=== PATIENT | male | born 1955 | race Hispanic/Latino ===

== ENCOUNTER 2017-09-15 13:55 | Inpatient (IN) | payer BC ==
[~2017-09-15] VITALS: Ht 165.1 cm; Wt 65.5 kg
[2017-09-15 15:19] LABS: BASOPHILS # (AUTO) 0.1 (0.0-0.1); BASOPHILS % 0.3 % (0.0-1.0); HEMATOCRIT 39.1 % (38.2-49.6); HEMOGLOBIN 13.7 g/dL (14.0-18.0); LYMPHOCYTES # (AUTO) 1.2 (1.0-3.2); LYMPHOCYTES % 6.9 % (18.0-39.1); MEAN CORPUSCULAR HEMOGLOBIN 30.2 pg (28-32); MEAN CORPUSCULAR VOLUME 86.3 fL (81-99); MONOCYTES # (AUTO) 1.1 (0.2-0.8); MONOCYTES % 6.2 % (4.4-11.3); NEUTROPHILS # (AUTO) 14.5 (2.1-6.9); NEUTROPHILS % 84.9 % (38.7-80.0); PLATELET COUNT 333 x10e3/uL (140-360); RED BLOOD COUNT 4.53 x10e6/uL (4.3-5.7); RED CELL DISTRIBUTION WIDTH 12.6 % (11.7-14.4)
[2017-09-15 15:27] LABS: BILIRUBIN,URINE NEGATIVE (NEGATIVE); CLARITY,URINE CLOUDY (CLEAR); COLOR,URINE YELLOW (YELLOW); KETONES,URINE NEGATIVE (NEGATIVE); LEUKOCYTE ESTERASE ,URINE 2+ (NEGATIVE); NITRITE,URINE NEGATIVE (NEGATIVE); PROTEIN,URINE DIPSTICK 2+ (NEGATIVE); URINE UROBILINOGEN 0.2 mg/dL (0.2 - 1)
[2017-09-15 15:39] LABS: ALBUMIN 2.6 g/dL (3.5-5.0); ALBUMIN/GLOBULIN RATIO 0.6 (0.8-2.0); ANION GAP 16.3 mmol/L (8-16); CALCIUM 9.3 mg/dL (8.4-10.2); CREATININE, SERUM 1.54 mg/dL (0.72-1.25); POTASSIUM 4.3 mmol/L (3.5-5.1)
[2017-09-15 15:41] LABS: BACTERIA,URINE MODERATE /HPF; EPITHELIAL CELLS,URINE RARE /LPF; WBC,URINE (MAN) >50 /HPF (0-5)
[2017-09-15] MEDS ORDERED: CEFTRIAXONE SOD 1 GM VIAL IV STA (16:41)
[2017-09-15] MEDS ORDERED: SODIUM CHLORIDE 0.9% 1000ML 1,000 ML IV SCH (16:45)
--- NOTE | 2017-09-15 16:52 | Diagnostic Imaging Report ---
PROCEDURE: CT ABDOMEN AND PELVIS WITHOUT CONTRAST COMPARISON:[facility], , US TESTICULAR DOPPLER LTD, 09/15/2017, 15:42. INDICATIONS:RIGHT KIDNEY STONE TECHNIQUE: Axial CT images through the abdomen and pelvis were obtained from the lung bases through the pubic symphysis. Coronal and sagittal reformations were created. DLP: 611.85 mGy-cm FINDINGS: Right kidney: No calculus. Low attenuating lesion in the posterior interpolar cortex measures 8 mm and is suggestive of a cyst. Mild perinephric inflammation. No hydronephrosis. Left kidney: No evidence of calculus. Mild perinephric inflammation. No mass or hydronephrosis. Bladder/ureters: Mild inflammation surrounding the proximal and mid left ureter. No evidence of calculus. Right ureter is normal in diameter without calculus or periureteric inflammation. Circumferential mural thickening of the bladder without intraluminal calculus or air. Lung bases: Diffusely hyperinflated with multiple air cysts measuring up to 2.6 cm in the right lower lobe. Visualized portion of the mediastinum is normal. Liver: Normal attenuation. No mass Spleen: Normal size. No mass. Biliary: Present and normal in appearance. No biliary ductal dilatation. Pancreas: Normal. Adrenal Glands: No mass. Vasculature: Aorta is normal in diameter with scattered calcifications. GI: The stomach is normal. Small bowel is normal in diameter with normal wall thickness. Small diverticulum in the second/third portion of the duodenum. Several scattered diverticula in the large bowel. There is increased attenuation of the contents of the large bowel which may be secondary to medication. The appendix is not visualized and may be absent or collapsed. Peritoneum/Retroperitoneum: No free fluid or fluid collection. Reproductive organs: Prostate gland is mildly enlarged. Seminal vesicles are normal. MSK: Mild degenerative changes of the spine without compression deformity. Trace degenerative changes of the hips. No destructive lesions. CONCLUSION: 1. No evidence of renal calculus or obstructive uropathy. Left periureteric inflammation may be secondary to urinary tract infection. Please correlate with urinalysis and urine culture. 2. Mild prostate hypertrophy and bladder wall thickening suggestive of bowel obstruction. 3. Diverticulosis coli. No bowel obstruction or inflammation. Dictated by: Sheryl Kwan M.D. on 09/15/2017 at 16:56 Electronically approved by: Sheryl Kwan M.D. on 09/15/2017 at 16:56
[2017-09-15] MEDS ORDERED: ACETAMINOPHEN 325 MG TAB PO STA (17:00)
[2017-09-15] MEDS ORDERED: INSULIN REGULAR, HUMAN 100 UNIT/1 ML 3ML VIAL SQ STA (17:04)
--- NOTE | 2017-09-15 17:05 | Diagnostic Imaging Report ---
PROCEDURE:TESTICULAR DOPPLER ULTRASOUND COMPARISON:[facility], US, US TESTICULAR, 09/15/2017, 15:42. INDICATIONS:Right testicular swelling, pain TECHNIQUE: Lao-scale and color Doppler images of the testicles and scrotal contents were obtained. Duplex imaging with spectral waveform analysis was performed of the testicular arteries and veins. FINDINGS: RIGHT SCROTUM: Testicle: 2.9 x 2.3 x 3.4 cm. No mass. Epididymal head: 8 x 7 x 17 mm. It contains a cyst measuring 5 x 8 x 8 mm. Appendix epididymis measures 2 x 3 x 4 mm. Hydrocele: None Varicocele: None LEFT SCROTUM: Testicle: 1.8 x 2.9 x 3.7 cm. No mass. Epididymal head: 5 x 5 x 9 mm. It contains a cyst measuring 5 x 4 x 6 mm. Hydrocele: Small Varicocele: None There is normal blood flow to the testes on color and spectral Doppler interrogation. Hernia: None. CONCLUSION: 1. Normal testes. 2. Bilateral epididymal head cysts. 3. Small left hydrocele. Dictated by: Sheryl Kwan M.D. on 09/15/2017 at 17:09 Electronically approved by: Sheryl Kwan M.D. on 09/15/2017 at 17:09
--- NOTE | 2017-09-15 17:06 | Diagnostic Imaging Report ---
PROCEDURE:US TESTICULAR COMPARISON:None. INDICATIONS:rt test swelling/ pain FINDINGS:Please refer to [id number] for report. CONCLUSION:As above. Dictated by: Sheryl Kwan M.D. on 09/15/2017 at 17:10 Electronically approved by: Sheryl Kwan M.D. on 09/15/2017 at 17:10
[2017-09-15] MEDS ORDERED: LEVOFLOXACIN 750MG/D5W 150ML 150 ML IV SCH ×2 (17:15→17:30)
[2017-09-15] MEDS ORDERED: MORPHINE SULFATE 2 MG/ML SYR IV PRN (17:15)
[2017-09-15] MEDS ORDERED: ONDANSETRON HCL INJ 2 MG/ML VIAL IV PRN (17:15)
[2017-09-15] MEDS ORDERED: DEXTROSE 50% SYRINGE 50 ML IV PRN (17:30)
[2017-09-15] MEDS: SODIUM CHLORIDE 0.9% 1000ML 1,000 ML IV SCH (18:55)
[2017-09-15] MEDS: CEFTRIAXONE SOD 1 GM VIAL IV SCH (19:06)
[2017-09-15 20:10] VITALS: BP 114/65
[2017-09-15] MEDS: INSULIN REGULAR, HUMAN 100 UNIT/1 ML 3ML VIAL SQ SCH (21:00)
[2017-09-15 21:08] VITALS: BP 114/65
[2017-09-16] VITALS (7 sets, daily range): BP systolic 107–117; BP diastolic 56–70
[2017-09-16] MEDS: ACETAMINOPHEN 325 MG TAB PO PRN (04:03)
[2017-09-16] MEDS: SODIUM CHLORIDE 0.9% 1000ML 1,000 ML IV SCH ×2 (04:03→09:19)
[2017-09-16] MEDS: CEFTRIAXONE SOD 1 GM VIAL IV SCH (05:40)
[2017-09-16 05:50] LABS: BASOPHILS # (AUTO) 0.1 (0.0-0.1); BASOPHILS % 0.3 % (0.0-1.0); EOSINOPHILS % 0.1 % (0.0-6.0); HEMATOCRIT 35.3 % (38.2-49.6); HEMOGLOBIN 12.3 g/dL (14.0-18.0); LYMPHOCYTES # (AUTO) 1.6 (1.0-3.2); LYMPHOCYTES % 9.7 % (18.0-39.1); MEAN CORPUSCULAR HEMOGLOBIN 30.1 pg (28-32); MEAN CORPUSCULAR HGB CONC 34.8 g/dL (31-35); MEAN CORPUSCULAR VOLUME 86.3 fL (81-99); MONOCYTES # (AUTO) 1.7 (0.2-0.8); MONOCYTES % 10.3 % (4.4-11.3); NEUTROPHILS # (AUTO) 12.5 (2.1-6.9); NEUTROPHILS % 77.7 % (38.7-80.0); PLATELET COUNT 261 x10e3/uL (140-360); RED BLOOD COUNT 4.09 x10e6/uL (4.3-5.7); RED CELL DISTRIBUTION WIDTH 12.8 % (11.7-14.4)
[2017-09-16 06:07] LABS: ALBUMIN 2.3 g/dL (3.5-5.0); ALBUMIN/GLOBULIN RATIO 0.6 (0.8-2.0); ANION GAP 14.1 mmol/L (8-16); CALCIUM 8.9 mg/dL (8.4-10.2); CREATININE, SERUM 1.29 mg/dL (0.72-1.25); POTASSIUM 4.1 mmol/L (3.5-5.1)
[2017-09-16 07:12] LABS: LYMPHOCYTES % (MANUAL) 7 % (19-48); MONOCYTES % (MANUAL) 9 % (3.4-9.0); NEUTROPHILS % (MANUAL) 81 % (40-74); PLATELET ESTIMATE ADEQUATE; PLATELET MORPHOLOGY COMMENT FEW LARGE; RBC MORPHOLOGY COMMENT NORMAL
[2017-09-16] MEDS: INSULIN REGULAR, HUMAN 100 UNIT/1 ML 3ML VIAL SQ SCH ×4 (09:30→20:35)
[2017-09-16] MEDS ORDERED: OXAPROZIN600 MG PO (09:53)
[2017-09-16] MEDS ORDERED: BACLOFEN10 MG PO (09:53)
[2017-09-16] MEDS ORDERED: GLIPIZIDE ER5 MG PO (09:53)
[2017-09-16] MEDS ORDERED: AMLODIPINE-BEN1 EAC2 PO (09:53)
[2017-09-16] MEDS ORDERED: CEFDINIR125 MG/5 M PO (09:53)
[2017-09-16] MEDS ORDERED: METFORMIN HCL500 M2 PO (09:53)
[2017-09-16] MEDS: LACTOBACILLUS ACIDOPHILUS CAPSULE PO SCH (16:28)
[2017-09-16] MEDS: ENOXAPARIN SOD INJ 40 MG/0.4 ML SYR SC SCH (16:28)
[2017-09-16] MEDS ORDERED: VANCOMYCIN 1GM/NS 250 ML 250 ML IV ONE (16:30)
[2017-09-16] MEDS: LEVOFLOXACIN 500 MG TAB PO SCH (21:00)
[2017-09-16] MEDS: METFORMIN HCL 500 MG TAB CR PO SCH (21:00)
[2017-09-17] MEDS: SODIUM CHLORIDE 0.9% 1000ML 1,000 ML IV SCH ×2 (00:43→10:44)
[2017-09-17 00:51] VITALS: BP 110/60
[2017-09-17] MEDS: ACETAMINOPHEN 325 MG TAB PO PRN ×2 (01:37→21:13)
[2017-09-17 05:21] VITALS: BP 110/58
[2017-09-17 06:12] LABS: BASOPHILS # (AUTO) 0.1 (0.0-0.1); BASOPHILS % 0.5 % (0.0-1.0); EOSINOPHILS % 0.3 % (0.0-6.0); HEMATOCRIT 36.1 % (38.2-49.6); HEMOGLOBIN 12.1 g/dL (14.0-18.0); LYMPHOCYTES # (AUTO) 2.3 (1.0-3.2); LYMPHOCYTES % 18.6 % (18.0-39.1); MEAN CORPUSCULAR HEMOGLOBIN 29.7 pg (28-32); MEAN CORPUSCULAR HGB CONC 33.5 g/dL (31-35); MEAN CORPUSCULAR VOLUME 88.7 fL (81-99); MONOCYTES # (AUTO) 1.2 (0.2-0.8); MONOCYTES % 10.1 % (4.4-11.3); NEUTROPHILS # (AUTO) 8.5 (2.1-6.9); NEUTROPHILS % 68.6 % (38.7-80.0); PLATELET COUNT 286 x10e3/uL (140-360); RED BLOOD COUNT 4.07 x10e6/uL (4.3-5.7)
[2017-09-17 06:34] LABS: ANION GAP 14.2 mmol/L (8-16); BLOOD UREA NITROGEN 16 mg/dL (7-26); BUN/CREATININE RATIO 15 (6-25); CALCIUM 8.8 mg/dL (8.4-10.2); CARBON DIOXIDE 25 mmol/L (22-29); CHLORIDE 105 mmol/L (98-107); EST GLOMERULAR FILTRATION RATE > 60 ML/MIN (60-); GLUCOSE 100 mg/dL (74-118); POTASSIUM 4.2 mmol/L (3.5-5.1); SODIUM 140 mmol/L (136-145)
[2017-09-17] MEDS: INSULIN REGULAR, HUMAN 100 UNIT/1 ML 3ML VIAL SQ SCH ×4 (07:30→21:00)
[2017-09-17 07:43] LABS: LYMPHOCYTES % (MANUAL) 8 % (19-48); MONOCYTES % (MANUAL) 5 % (3.4-9.0); MYELOCYTES % (MANUAL) 1 % (0-0); NEUTROPHILS % (MANUAL) 78 % (40-74); RBC MORPHOLOGY COMMENT NORMAL
[2017-09-17 07:44] LABS: PLATELET ESTIMATE ADEQUATE; PLATELET MORPHOLOGY COMMENT NORMAL
[2017-09-17 07:57] VITALS: BP 116/56
[2017-09-17] MEDS ORDERED: CEFTRIAXONE SOD 1 GM VIAL IV SCH (09:00)
[2017-09-17] MEDS: LACTOBACILLUS ACIDOPHILUS CAPSULE PO SCH ×2 (09:16→17:00)
[2017-09-17 12:49] VITALS: BP 136/66
[2017-09-17 16:39] VITALS: BP 134/53
[2017-09-17] MEDS: ENOXAPARIN SOD INJ 40 MG/0.4 ML SYR SC SCH (17:00)
--- NOTE | 2017-09-17 19:38 | Consultation ---
DATE OF CONSULTATION: September 17, 2017 REASON FOR CONSULTATION: Urinary tract infection, prostatitis, acute, pyelonephritis, and right testicular pain. HISTORY: A 62-year-old male admitted to the hospital with pyelonephritis, urinary tract infection, prostatitis. The patient has had for the last 2-1/2 to 3 months some difficulty urinating. The difficulty has been with frequency and urgency intermittently. He also has had hematospermia on 3 occasions, and has had some passage of small little clots intermittently over the last 2 months. The patient got admitted to the hospital with exacerbation of his symptoms. Urine culture reveals E. coli sensitive to antibiotics of Cipro, Levaquin. The patient is afebrile today. PHYSICAL EXAMINATION : Bilateral descended testicles. Penis is normal. Prostate exam is not done since the patient probably has prostatitis. I do not want to cause a prostatic thrill. IMPRESSION 1. Prostatitis, acute. 2. Pyelonephritis. 3. Urinary tract infection. RECOMMENDATIONS: The patient had a CT scan that shows no tumors or stones. The bladder wall is thickened, but this could be secondary to the UTI he has. I have requested the patient to come see me in the office within a month for urological evaluation with a flow test. Will recheck the urine. If there is any blood, the patient will need to have a cystoscopy. The patient may go home. I will write Cipro for the next 2 weeks. Job#: [id number] GERMAINE
[2017-09-17 20:00] VITALS: BP 118/53
[2017-09-17] MEDS: METFORMIN HCL 500 MG TAB CR PO SCH (21:12)
[2017-09-17] MEDS: LEVOFLOXACIN 500 MG TAB PO SCH (21:12)
[2017-09-18] VITALS: BP 118/53
[2017-09-18] MEDS: INSULIN REGULAR, HUMAN 100 UNIT/1 ML 3ML VIAL SQ SCH (07:30)
[2017-09-18 08:00] VITALS: BP 129/72
[2017-09-18] MEDS: LACTOBACILLUS ACIDOPHILUS CAPSULE PO SCH (08:33)
--- NOTE | 2017-09-18 12:30 | Discharge Summary ---
PRIMARY CARE DOCTOR: Dr. Juanpablo Greenwood. FINAL DIAGNOSIS: Sepsis present on admission due to acute prostatitis and Escherichia coli urinary tract infection. SECONDARY DIAGNOSIS 1. Acute kidney injury, resolving. 2. Hyponatremia, resolving. 3. Diabetes, stable. CONSULTANTS: Dr. Jaime Adames, urology. PROCEDURES/STUDIES PERFORMED 1. Testicular ultrasound. 2. Computed tomography of abdomen and pelvis. HISTORY: Per H\T\P. HOSPITAL COURSE: Patient responded well to IV antibiotics based on his culture results. The patient will be going home on Cipro for 2 more weeks. Given his right testicular pain, patient was evaluated by Dr. Jaime Adames. Patient will follow up with him in 1 month. Patient does have asymptomatic bradycardia, heart rate in the high 40s. Patient stated that this not new and he has not had any symptoms with it. Patient was instructed to follow up with Dr. Greenwood, his primary care doctor. Patient was seen and examined today. It took 32 minutes total to discharge this patient. CONDITION ON DISCHARGE: Stable. DISCHARGE MEDICATIONS: Please see medication reconciliation form. AMISH EID M.D. Job#: [id number] EV cc:JUANPABLO GREENWOOD MD
== END 2017-09-18 14:31 | disposition home or self-care (01) | DRG 872 ==
LOC: ER 13:55 → ERHOLD 18:32 → MED/SURG2 20:12
PROVIDERS: ADMIT Internal Medicine; ATTEND Internal Medicine
DX: A41.89 Other specified sepsis (principal); N39.0 Urinary tract infection, site not specified; N17.9 Acute kidney failure, unspecified; E87.1 Hypo-osmolality and hyponatremia; N10 Acute pyelonephritis; E86.0 Dehydration; N41.9 Inflammatory disease of prostate, unspecified; B96.89 Other specified bacterial agents as the cause of diseases classified elsewhere; B96.20 Unspecified Escherichia coli [E. coli] as the cause of diseases classified elsewhere; Z16.24 Resistance to multiple antibiotics; N40.1 Benign prostatic hyperplasia with lower urinary tract symptoms; R35.0 Frequency of micturition; R39.15 Urgency of urination; E11.65 Type 2 diabetes mellitus with hyperglycemia; Z79.4 Long term (current) use of insulin
CPT/HCPCS: 36415; 74176; 76870; 80048; 80053; 81001; 82948; 83605; 84152; 84443; 85025; 87040; 87071; 87086; 87186; 87205; 87493; 93976; 96372; 99284; J0696; J1650; J3370; J7030

== ENCOUNTER 2024-05-15 12:07 | Emergency (ER) | payer BC, MEDICARE ==
[~2024-05-15] VITALS: Ht 165.1 cm; Wt 65.3 kg
[~2024-05-15 12:07] MED LIST: AMLODIPINE-BEN1 EAC2 PO; BACLOFEN10 MG PO; CEFDINIR125 MG/5 M PO; GLIPIZIDE ER5 MG PO; METFORMIN HCL500 M2 PO; OXAPROZIN600 MG PO
[2024-05-15 12:11] VITALS: PULSE 82; RESP 19; TEMP 98.2; O2SAT 100
== END 2024-05-15 12:28 | disposition home or self-care (01) ==
LOC: ER 12:27
DX: F43.0 Acute stress reaction (principal); I10 Essential (primary) hypertension; E11.9 Type 2 diabetes mellitus without complications; E78.5 Hyperlipidemia, unspecified; I25.2 Old myocardial infarction; Z95.810 Presence of automatic (implantable) cardiac defibrillator
CPT/HCPCS: 93005; 99284